=== PATIENT | male | born 1965 | race Caucasian/White ===

== ENCOUNTER 2017-03-17 07:05 | Emergency (ER) | payer MEDICAID ==
[~2017-03-17] VITALS: Ht 172.7 cm; Wt 83.5 kg
[~2017-03-17 07:05] MED LIST: ALBU18HF INHALATION; ALPR0.25 PO; UDROBDM PO
[2017-03-17 07:09] VITALS: Ht 172.7 cm; Wt 83.5 kg
[2017-03-17] MEDS ORDERED: ONDANSETRON 4 MG INJ IV STA (07:40)
[2017-03-17] MEDS ORDERED: morphine 4 MG/ML VIAL IV STA (07:40)
[2017-03-17] MEDS ORDERED: SOD CHLORIDE 0.9% 1,000 ML IV STA (07:40)
--- NOTE | 2017-03-17 08:07 | ERD ---
ER Documentation Chief Complaint Date/Time DATE: 03/17/17 TIME: 08:03 Chief Complaint Pt with B Flank pain L>R X 1 month, denies dysuria, no fever. HPI Otherwise healthy 51-year-old male presents to the emergency department for complaints of intermittent bilateral flank pain 1 year. Patient notes a sharp flank pain left greater than right however bilateral which is intermittent and rated at an 8 out of 10 burning pain not associated with any movement or activity. Patient states that he is attempted to treat his symptoms with Motrin at home with temporary relief. He denies any fever, chills, dysuria, hematuria, discharge. He denies nausea, vomiting, diarrhea, or recent illnes or sudden weight loss. He denies prior evaluation for this condition. ROS All systems reviewed and are negative except as per history of present illness. Medications Home Meds Active Scripts Tamsulosin Hcl* (Flomax*) 0.4 Mg Cap.er.24h, 0.4 MG PO DAILY, #30 CAP Prov:ARNOLD CHACKO PA-C 03/17/17 Naproxen* (Naprosyn*) 500 Mg Tablet, 500 MG PO BID Y for PAIN AND/OR INFLAMMATION, #30 TAB Prov:ARNOLD CHACKO PA-C 03/17/17 Hydrocodone/Acetaminophen ([place] 5-325 Tablet) 1 Each Tablet, 1 TAB PO Q6H Y for PAIN, #20 TAB Prov:ARNOLD CHACKO PA-C 03/17/17 Guaifenesin-Dextromethorphan* (Robitussin* DM) 100MG/10MG/5ML Syrup, 5 ML PO Q6H Y for COUGH, #240 ML 0 Refills Prov:DUKE COOLEY PA-C 10/26/15 Alprazolam* (Xanax*) 0.25 Mg Tablet, 0.25 MG PO DAILY Y for ANXIETY, #10 TAB 0 Refills Prov:DUKE COOLEY PA-C 10/26/15 Albuterol Sulfate* (Ventolin HFA*) 18 Gm Hfa.aer.ad, 2 PUFF INHALATION Q6H, #1 INHALER 0 Refills Prov:DUKE COOLEY PA-C 10/26/15 Allergies Allergies: Coded Allergies: No Known Allergy (Unverified , 03/17/17) PMhx/Soc Medical and Surgical Hx: pt denies Medical Hx, pt denies Surgical Hx Hx Alcohol Use: No Hx Substance Use: No Hx Tobacco Use: No Physical Exam Vitals Vital Signs Date Time Temp Pulse Resp B/P Pulse Ox O2 Delivery O2 Flow Rate FiO2 03/17/17 07:09 98.4 99 18 123/74 95 Physical Exam Const: Well-developed, well-nourished, no acute distress Head: Atraumatic Eyes: Normal Conjunctiva ENT: Normal External Ears, Nose and Mouth. Neck: Full range of motion..~ No meningismus. Resp: Clear to auscultation bilaterally Cardio: Regular rate and rhythm, no murmurs Abd: Soft, non tender, non distended. Normal bowel sounds Skin: No petechiae or rashes Back: Bilateral flank tenderness to palpation. Left greater than right. No midline spinal tenderness. Ext: No midline spinal tenderness. Patient has full range of motion at hip joint. Patient able to bear full weight and ambulate without difficulty. Distal sensation and perfusion intact to lower extremities. Neur: Awake and alert Psych: Normal Mood and Affect Result Diagram: 03/17/1774403/17/1745 Results 24 hrs Laboratory Tests Test 03/17/17 07:45 White Blood Count 6.710^3/ul Red Blood Count 4.9710^6/ul Hemoglobin 14.4g/dl Hematocrit 42.5% Mean Corpuscular Volume 85.5fl Mean Corpuscular Hemoglobin 29.0pg Mean Corpuscular Hemoglobin Concent 33.9g/dl Red Cell Distribution Width 12.3% Platelet Count 05894^3/UL Mean Platelet Volume 10.3fl Neutrophils % 56.5% Lymphocytes % 31.9% Monocytes % 8.7% Eosinophils % 2.1% Basophils % 0.5% Nucleated Red Blood Cells % 0.0/100WBC Neutrophils # 3.810^3/ul Lymphocytes # 2.110^3/ul Monocytes # 0.610^3/ul Eosinophils # 0.110^3/ul Basophils # 0.010^3/ul Nucleated Red Blood Cells # 0.010^3/ul Urine Color YELLOW Urine Clarity SLIGHTLY CLOUDY Urine pH 5.0 Urine Specific [place] 1.028 Urine Ketones NEGATIVEmg/dL Urine Nitrite NEGATIVEmg/dL Urine Bilirubin NEGATIVEmg/dL Urine Urobilinogen NEGATIVEmg/dL Urine Leukocyte Esterase NEGATIVELeu/ul Urine Microscopic RBC 1/HPF Urine Microscopic WBC 1/HPF Urine Mucus FEW/HPF Urine Hemoglobin NEGATIVEmg/dL Urine Glucose NEGATIVEmg/dL Urine Total Protein NEGATIVEmg/dl Sodium Level 142mmol/L Potassium Level 3.8mmol/L Chloride Level 101mmol/L Carbon Dioxide Level 25mmol/L Anion Gap 20 Blood Urea Nitrogen 19mg/dl Creatinine 0.98mg/dl Glucose Level 174mg/dl Calcium Level 9.5mg/dl Total Bilirubin 0.4mg/dl Direct Bilirubin 0.00mg/dl Indirect Bilirubin 0.4mg/dl Aspartate Amino Transf (AST/SGOT) 32IU/L Alanine Aminotransferase (ALT/SGPT) 57IU/L Alkaline Phosphatase 59IU/L Total Protein 7.8g/dl Albumin 4.9g/dl Globulin 2.90g/dl Albumin/Globulin Ratio 1.68 Lipase 131U/L Current Medications Medications (Trade) Dose Ordered Sig/Liu Route PRN Reason Start Time Stop Time Status Last Admin Dose Admin Sodium Chloride (NS) 1,000 ml @ 1,000 mls/hr Q1H STAT IV 03/17/17 07:40 03/17/17 08:39 DC 03/17/17 07:48 Morphine Sulfate (morphine) 4 mg ONCE STAT IV 03/17/17 07:40 03/17/17 07:42 DC 03/17/17 07:51 Ondansetron HCl (Zofran Inj) 4 mg ONCE STAT IV 03/17/17 07:40 03/17/17 07:42 DC 03/17/17 07:51 Procedures/MDM PROCEDURE: CT Abdomen and pelvis without contrast. CLINICAL INDICATION: Bilateral flank pain. TECHNIQUE: CT scan of the abdomen and pelvis with contrast was performed on a multidetector high-resolution CT scan. . Coronal and sagittal reformatted images were obtained from the axial source images. Standard CT scan of the abdomen pelvis without contrast protocols were performed. The total exam CTDI equals 10.92 mGy and the total exam DLP equals 663.63 mGy- cm. One or more of the following dose reduction techniques were used: - Automated exposure control. - Adjustment of the mA and/or kV according to patient size. Use of iterative reconstruction technique. COMPARISON: None. FINDINGS: The kidneys are normal in size without calcified renal calculi, hydronephrosis or intra renal masses bilaterally. The ureters are unremarkable. The urinary bladder is unremarkable. The appendix is unremarkable. The stomach, small bowel and large bowel are unremarkable. Negative for intra-abdominal free air fluid abscesses or lymphadenopathy. There is a coarse calcification within the inferior spleen consistent with old granulomatous disease. The spleen is otherwise unremarkable. The liver pancreas adrenal glands and gallbladder are unremarkable. No biliary ductal dilation. Atherosclerosis of the abdominal aorta and the iliac arteries but no aneurysm. Small fat containing right inguinal hernia but no herniated bowel or strangulation. Mild scarring at the lung bases worse at the right base with the lung bases otherwise unremarkable. There are degenerative changes of the lower thoracic and lumbar spine but no acute osseous findings or osteoblastic/osteolytic lesions. IMPRESSION: 1. No evidence of calcified urinary calculi or obstructive uropathy. 2. Unremarkable appendix. 3. 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 4. Bibasilar parenchymal lung changes. 5. Negative for intra-abdominal free air fluid abscesses or lymphadenopathy. RPTAT:AAJJ Physician Dexter Date Time Electronically viewed and signed by Physician Dexter on 03/17/2017 08:44 BM/ CC: ARNOLD CHACKO PA-C This is an otherwise healthy 51-year-old male who presents the emergency department for complaints of intermittent flank pain 1 year. Patient without complaints of fever, chills, abdominal pain, dysuria, or hematuria. Physical exam unremarkable aside from bilateral flank tenderness to palpation. Vital signs reviewed. Patient afebrile, non-hypoxic, non-tachycardic and normotensive upon arrival. CBC showed no evidence of systemic infection or severe anemia. CMP showed no evidence of electrolyte abnormalities, severe acidosis, alkalosis , renal failure, or liver disease. Lipase showed no evidence of acute pancreatitis. UA showed no evidence of acute infection or hematuria. Patient received a liter of fluids as well as pain medication while in the emergency department. CT abdomen and pelvis revealed evidence of calcifications in the pancreas. Otherwise unremarkable. History and physical consistent with flank pain of unknown etiology. Differential diagnosis includes but not limited to osteoarthritis, abdominal aortic aneurysm, duodenal ulcer, pyelonephritis, renal calculi, pancreatitis, or prostatitis. Patient received prescription for pain medication and Flomax and instructed to to follow-up with primary care provider. Resources provided. Based on patient's history of present illness and physical examination the decision was made to discharge. The patient was re-evaluated after ED treatment and stabilizing measures, and symptoms have improved. There is no evidence of life threatening injuries or illnesses at this time. On re-examination, patient resting in no distress, stable vital signs, reports feeling better and safe for discharge with outpatient follow up with PMD in 1-2 days. Patient given return precautions. Departure Diagnosis: Primary Impression: Flank pain ARNOLD CHACKO PA-C Mar 17, 2017 08:07
[2017-03-17 08:22] LABS: ADD SCAN DIFF NO
[2017-03-17 08:30] LABS: ADD UMIC NO; UR ASCORBIC ACID 40 mg/dL (NEGATIVE); UR BILIRUBIN (Dip) NEGATIVE (NEGATIVE); UR BLOOD (Dip) NEGATIVE (NEGATIVE); UR CLARITY SLIGHTLY CLOUDY (CLEAR); UR COLOR YELLOW (YELLOW); UR GLUCOSE (Dip) NEGATIVE (NEGATIVE); UR KETONES (Dip) NEGATIVE (NEGATIVE); UR LEUKOCYTE ESTERASE (Dip) NEGATIVE Leu/ul (NEGATIVE); UR MUCUS FEW /HPF (NONE SEEN); UR NITRITE (Dip) NEGATIVE (NEGATIVE); UR RBC 1 /HPF (0-5); UR SPECIFIC GRAVITY (Dip) 1.028 (1.003-1.030); UR TOTAL PROTEIN (Dip) NEGATIVE (NEGATIVE); UR UROBILINOGEN (Dip) NEGATIVE (NEGATIVE)
[2017-03-17 08:41] LABS: BASOPHILS % 0.5 % (0.0-2.0); EOSINOPHILS # 0.1 10^3/ul (0.0-0.5); EOSINOPHILS % 2.1 % (0.0-7.0); HEMATOCRIT 42.5 % (42.0-52.0); HEMOGLOBIN 14.4 g/dl (14.0-18.0); LYMPHOCYTES # 2.1 10^3/ul (0.8-2.9); LYMPHOCYTES % 31.9 % (15.0-51.0); MEAN CORPUSCULAR HGB CONC 33.9 g/dl (32.0-37.0); MEAN CORPUSCULAR VOLUME 85.5 fl (82.0-101.0); MEAN PLATELET VOLUME 10.3 fl (7.4-10.4); MONOCYTE # 0.6 10^3/ul (0.3-0.9); MONOCYTES % 8.7 % (0.0-11.0); NEUTROPHIL # 3.8 10^3/ul (1.6-7.5); NEUTROPHILS % 56.5 % (39.0-77.0); PLATELET COUNT 267 10^3/UL (140-415); RED BLOOD COUNT 4.97 10^6/ul (4.70-6.10); RED CELL DISTRIBUTION WIDTH 12.3 % (11.5-14.5); WHITE BLOOD COUNT 6.7 10^3/ul (4.8-10.8)
--- NOTE | 2017-03-17 08:45 | RADRPT ---
PROCEDURE: CT Abdomen and pelvis without contrast. CLINICAL INDICATION: Bilateral flank pain. TECHNIQUE: CT scan of the abdomen and pelvis with contrast was performed on a multidetector high-r esolution CT scan. . Coronal and sagittal reformatted images were obtained from the axial source i mages. Standard CT scan of the abdomen pelvis without contrast protocols were performed. The total exam CTDI equals 10.92 mGy and the total exam DLP equals 663.63 mGy-cm. One or more of the following dose reduction techniques were used: - Automated exposure control. - Adjustment of the mA and/or kV according to patient size. Use of iterative reconstruction technique. COMPARISON: None. FINDINGS: The kidneys are normal in size without calcified renal calculi, hydronephrosis or intra renal masses bilaterally. The ureters are unremarkable. The urinary bladder is unremarkable. The appendix is unremarkable. The stomach, small bowel and large bowel are unremarkable. Negative for intra-abdominal free air fluid abscesses or lymphadenopathy. There is a coarse calcification within the inferior spleen consistent with old granulomatous disease . The spleen is otherwise unremarkable. The liver pancreas adrenal glands and gallbladder are unremarkable. No biliary ductal dilation. Atherosclerosis of the abdominal aorta and the iliac arteries but no aneurysm. Small fat containing right inguinal hernia but no herniated bowel or strangulation. Mild scarring at the lung bases worse at the right base with the lung bases otherwise unremarkable. There are degenerative changes of the lower thoracic and lumbar spine but no acute osseous findings or osteoblastic/osteolytic lesions. IMPRESSION: 1. No evidence of calcified urinary calculi or obstructive uropathy. 2. Unremarkable appendix. 3. 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 4. Bibasilar parenchymal lung changes. 5. Negative for intra-abdominal free air fluid abscesses or lymphadenopathy. RPTAT:AAJJ Physician Dexter Date Time Electronically viewed and signed by Physician Dexter on 03/17/2017 08:44 BM/
[2017-03-17 08:48] LABS: ALBUMIN 4.9 g/dl (3.3-4.9); ALBUMIN/GLOBULIN RATIO 1.68; BILIRUBIN,INDIRECT 0.4 mg/dl (0-1.1); BILIRUBIN,TOTAL 0.4 mg/dl (0.2-1.3); CALCIUM 9.5 mg/dl (8.4-10.2); CREATININE 0.98 mg/dl (0.61-1.24); POTASSIUM 3.8 mmol/L (3.5-5.1); TOTAL PROTEIN 7.8 g/dl (6.1-8.1)
[2017-03-17] MEDS ORDERED: NAPR-260 PO (08:51)
[2017-03-17] MEDS ORDERED: HYDR-906 PO (08:51)
[2017-03-17] MEDS ORDERED: TAMS-14 PO (09:00)
[2017-03-17 09:06] VITALS: BP 114/66; PULSE 77; RESP 20; TEMP 98.3
== END 2017-03-17 09:07 | disposition home or self-care (01) ==
LOC: FTE 07:05
DX: R10.9 Unspecified abdominal pain (principal)
CPT/HCPCS: 36415; 74176; 80053; 81001; 83690; 85025; 96374; 96375; J2270; J2405; J7030; Z7502; 81003

== ENCOUNTER 2017-05-11 06:55 | Emergency (ER) | payer SELFPAY ==
[~2017-05-11] VITALS: Ht 172.7 cm; Wt 83.0 kg
[~2017-05-11 06:55] MED LIST changes: +HYDR-906 PO; +NAPR-260 PO; +TAMS-14 PO
[2017-05-11 06:58] VITALS: Ht 172.7 cm; Wt 83.0 kg
[2017-05-11] MEDS ORDERED: NAPR-260 PO (08:22)
[2017-05-11] MEDS ORDERED: MED4DP PO (08:22)
--- NOTE | 2017-05-11 09:02 | ERD ---
ER Documentation Chief Complaint Date/Time DATE: 05/11/17 TIME: 08:59 Chief Complaint BODY ACHE X 1 MONTH HPI 51-year-old male complaining of total body pain. Patient states his been going on constantly for the last month. He took his 's Curtis which alleviated his symptoms however symptoms returned after medication wore off. Denies any fever. Denies any traumatic injuries. Has not seen his primary doctor. Denies any chest pain or shortness of breath. Denies any numbness or tingling to the extremities. Denies swelling. Pain is constant and does not know what causes the pain to come and go. Denies any recent URIs ROS All systems reviewed and are negative except as per history of present illness. Medications Home Meds Active Scripts Naproxen* (Naprosyn*) 500 Mg Tablet, 500 MG PO BID Y for PAIN AND/OR INFLAMMATION, #30 TAB Prov:PATRICIA STONE PA-C 05/11/17 Methylprednisolone* (Medrol* DOSE PACK) 4 Mg/Dose-Pack Tab.ds.pk, 4 MG PO . DIRECTED, #1 PACKET Prov:PATRICIA STONE PA-C 05/11/17 Tamsulosin Hcl* (Flomax*) 0.4 Mg Cap.er.24h, 0.4 MG PO DAILY, #30 CAP Prov:ARNOLD CHACKO PA-C 03/17/17 Naproxen* (Naprosyn*) 500 Mg Tablet, 500 MG PO BID Y for PAIN AND/OR INFLAMMATION, #30 TAB Prov:ARNOLD CHACKO PA-C 03/17/17 Hydrocodone/Acetaminophen ([place] 5-325 Tablet) 1 Each Tablet, 1 TAB PO Q6H Y for PAIN, #20 TAB Prov:ARNOLD CHACKO PA-C 03/17/17 Guaifenesin-Dextromethorphan* (Robitussin* DM) 100MG/10MG/5ML Syrup, 5 ML PO Q6H Y for COUGH, #240 ML 0 Refills Prov:DUKE COOLEY PA-C 10/26/15 Alprazolam* (Xanax*) 0.25 Mg Tablet, 0.25 MG PO DAILY Y for ANXIETY, #10 TAB 0 Refills Prov:DUKE COOLEY PA-C 10/26/15 Albuterol Sulfate* (Ventolin HFA*) 18 Gm Hfa.aer.ad, 2 PUFF INHALATION Q6H, #1 INHALER 0 Refills Prov:LENORADUKE RUVALCABA 10/26/15 Allergies Allergies: Coded Allergies: No Known Allergy (Unverified , 03/17/17) PMhx/Soc Medical and Surgical Hx: pt denies Medical Hx, pt denies Surgical Hx Hx Alcohol Use: No Hx Substance Use: No Hx Tobacco Use: No Smoking Status: Never smoker Physical Exam Vitals Vital Signs Date Time Temp Pulse Resp B/P Pulse Ox O2 Delivery O2 Flow Rate FiO2 05/11/17 06:58 97.9 92 18 124/73 99 Physical Exam GENERAL: The patient is well-appearing, well-nourished, in no acute distress CHEST: Clear to auscultation bilaterally. There are no rales, wheezes or rhonchi. HEART: Regular rate and rhythm. No murmurs, clicks, rubs or gallops. No S3 or S4. BACK: No midline or flank tenderness. EXTREMITIES: Equal pulses bilaterally. There is no peripheral clubbing, cyanosis or edema. No focal swelling or erythema. Full range of motion. Grossly neurovascularly intact. NEUROLOGIC: Alert and oriented. Cranial nerves II through XII intact. Motor strength in all 4 extremities with 5 out of 5 strength. Sensation grossly intact. Normal speech and gait. Babinski negative. DTR 2+ throughout. SKIN: There is no apparent rash or petechiae. The skin is warm and dry. Procedures/MDM MDM: 51-year-old male coming in complaining of total body pain 1 month. I have low suspicion for septic joint, osteomyelitis, compartment syndrome, or bacterial infection. I have low suspicion for traumatic injury. Patient does not have history of trauma and there are no bony deformities or abnormalities appreciated on exam. I have low suspicion for neurodeficit. Patient will be given steroids to help with possible inflammation and recommend follow-up with primary care for physical exam. I recommended patient not to take Curtis as it has addictive properties and I will write for naproxen. All questions answered discharge Departure Diagnosis: Primary Impression: Pain Condition: Stable Patient Instructions: Pain Management Referrals: [facility] YOU HAVE RECEIVED A MEDICAL SCREENING EXAM AND THE RESULTS INDICATE THAT YOU DO NOT HAVE A CONDITION THAT REQUIRES URGENT TREATMENT IN THE EMERGENCY DEPARTMENT. FURTHER EVALUATION AND TREATMENT OF YOUR CONDITION CAN WAIT UNTIL YOU ARE SEEN IN YOUR DOCTORS OFFICE WITHIN THE NEXT 1-2 DAYS. IT IS YOUR RESPONSIBILITY TO MAKE AN APPOINTMENT FOR FOLOW-UP CARE. IF YOU HAVE A PRIMARY DOCTOR --you should call your primary doctor and schedule an appointment IF YOU DO NOT HAVE A PRIMARY DOCTOR YOU CAN CALL OUR PHYSICIAN REFERRAL HOTLINE AT IF YOU CAN NOT AFFORD TO SEE A PHYSICIAN YOU CAN CHOSE FROM THE FOLLOWING [facility] [address] [facility] [address] [email or web address] [address] [facility] [address] [facility] [address] [facility]. [facility]. [address] Additional Instructions: FOLLOW UP WITH YOUR PRIMARY CARE PHYSICIAN TOMORROW.Return to this facility if you are not improving as expected. PATRICIA STONE PA-C May 11, 2017 09:02
== END 2017-05-11 10:04 | disposition home or self-care (01) ==
LOC: FTE 06:55
DX: R52 Pain, unspecified (principal)
CPT/HCPCS: 99283

== ENCOUNTER 2017-05-29 07:36 | Emergency (ER) | payer SELFPAY ==
[~2017-05-29] VITALS: Ht 167.6 cm; Wt 83.5 kg
[~2017-05-29 07:36] MED LIST changes: +MED4DP PO
[2017-05-29 07:39] VITALS: Ht 167.6 cm; Wt 83.5 kg
[2017-05-29] MEDS ORDERED: KETOROLAC 30 MG INJ IM STA (08:27)
[2017-05-29] MEDS ORDERED: IBUPROFEN 600 MG TAB PO ONE (09:00)
[2017-05-29 09:29] LABS: ADD UMIC NO; UR ASCORBIC ACID NEGATIVE (NEGATIVE); UR BILIRUBIN (Dip) NEGATIVE (NEGATIVE); UR BLOOD (Dip) NEGATIVE (NEGATIVE); UR CLARITY CLEAR (CLEAR); UR COLOR STRAW (YELLOW); UR GLUCOSE (Dip) NEGATIVE (NEGATIVE); UR KETONES (Dip) NEGATIVE (NEGATIVE); UR LEUKOCYTE ESTERASE (Dip) NEGATIVE Leu/ul (NEGATIVE); UR NITRITE (Dip) NEGATIVE (NEGATIVE); UR SPECIFIC GRAVITY (Dip) 1.006 (1.003-1.030); UR TOTAL PROTEIN (Dip) NEGATIVE (NEGATIVE); UR UROBILINOGEN (Dip) NEGATIVE (NEGATIVE)
[2017-05-29 09:31] LABS: BASOPHILS % 0.5 % (0.0-2.0); EOSINOPHILS # 0.1 10^3/ul (0.0-0.5); EOSINOPHILS % 1.7 % (0.0-7.0); HEMATOCRIT 42.6 % (42.0-52.0); HEMOGLOBIN 14.3 g/dl (14.0-18.0); LYMPHOCYTES # 1.9 10^3/ul (0.8-2.9); LYMPHOCYTES % 23.8 % (15.0-51.0); MEAN CORPUSCULAR HEMOGLOBIN 28.5 pg (29.0-33.0); MEAN CORPUSCULAR HGB CONC 33.6 g/dl (32.0-37.0); MEAN PLATELET VOLUME 10.2 fl (7.4-10.4); MONOCYTE # 0.8 10^3/ul (0.3-0.9); MONOCYTES % 10.7 % (0.0-11.0); NEUTROPHILS % 62.9 % (39.0-77.0); PLATELET COUNT 230 10^3/UL (140-415); RED BLOOD COUNT 5.01 10^6/ul (4.70-6.10); RED CELL DISTRIBUTION WIDTH 12.4 % (11.5-14.5); WHITE BLOOD COUNT 7.9 10^3/ul (4.8-10.8)
[2017-05-29 09:50] LABS: ALBUMIN 4.4 g/dl (3.3-4.9); ALBUMIN/GLOBULIN RATIO 1.37; BILIRUBIN,INDIRECT 0.3 mg/dl (0-1.1); BILIRUBIN,TOTAL 0.3 mg/dl (0.2-1.3); CALCIUM 9.5 mg/dl (8.4-10.2); CREATININE 0.89 mg/dl (0.61-1.24); POTASSIUM 4.6 mmol/L (3.5-5.1); TOTAL PROTEIN 7.6 g/dl (6.1-8.1)
[2017-05-29] MEDS ORDERED: TAMS-14 PO (10:04)
[2017-05-29] MEDS ORDERED: DOXY100T20 PO (10:04)
[2017-05-29 10:09] VITALS: BP 122/71; PULSE 73; RESP 19; TEMP 98.1
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
== END 2017-05-29 10:10 | disposition home or self-care (01) ==
LOC: FTE 07:36
DX: N41.0 Acute prostatitis (principal)
CPT/HCPCS: 36415; 80053; 81003; 85025; 99284

== ENCOUNTER 2018-12-27 11:05 | Emergency (ER) | payer MEDICAID ==
[~2018-12-27] VITALS: Wt 75.0 kg
[~2018-12-27 11:05] MED LIST changes: +DOXY100T20 PO; +GUAI5SYR2 PO; +HYDR-4011 PO; -HYDR-906 PO; -NAPR-260 PO; +NAPR-985 PO; -UDROBDM PO
[2018-12-27] MEDS ORDERED: LIDOCAINE 2% 20 ML UROJET SYRINGE MM ONE ×2 (11:30)
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
[2018-12-27] MEDS ORDERED: TAMS-14 PO (11:44)
[2018-12-27] MEDS ORDERED: CIPR500T4 PO (11:44)
[2018-12-27 13:20] VITALS: BP 144/85; PULSE 70; RESP 18
== END 2018-12-27 13:24 | disposition home or self-care (01) ==
LOC: E/R 11:05
DX: R33.9 Retention of urine, unspecified (principal)
CPT/HCPCS: 51702; Z7502; Z7610

== ENCOUNTER 2018-12-27 16:03 | Emergency (ER) | payer MEDICAID ==
[~2018-12-27] VITALS: Wt 77.4 kg
[~2018-12-27 16:03] MED LIST changes: +CIPR500T4 PO
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
== END 2018-12-27 19:10 | disposition home or self-care (01) ==
LOC: FTE 16:03
DX: R39.89 Other symptoms and signs involving the genitourinary system (principal)
CPT/HCPCS: 99283